=== PATIENT | female | born 1975 | race Caucasian/White ===

== ENCOUNTER 2018-01-04 09:17 | Emergency (ER) | payer OTHER ==
[~2018-01-04] VITALS: Ht 157.5 cm; Wt 46.3 kg
[~2018-01-04 09:17] MED LIST: PRENATAL COMPLE1 TAB
[2018-01-04] MEDS ORDERED: INTESTINEX680 M1 PO (15:35)
[2018-01-04] MEDS ORDERED: ZANTAC150 MG PO (15:35)
[2018-01-04] MEDS ORDERED: LEVSIN/SL0.125 MG PO (15:35)
== END 2018-01-04 16:22 | disposition home or self-care (01) ==
LOC: ER 09:17
DX: K29.00 Acute gastritis without bleeding (principal)